=== PATIENT | male | born 1965 | race Caucasian/White ===

== ENCOUNTER 2021-12-21 10:54 | Day surgery (SDC) | payer OTHER ==
[2021-12-16 12:24] VITALS: BMI 31.1
[2021-12-21 14:44] VITALS: PULSE 52; TEMP 98.6
[2021-12-21 14:47] VITALS: BP 125/67
== END 2021-12-21 13:20 | disposition home or self-care (01) ==
LOC: FASU-ENDO 10:54
PROVIDERS: ATTEND Internal Medicine Gastroenterology
PROC: 0DJD8ZZ Inspection of Lower Intestinal Tract, Via Natural or Artificial Opening Endoscopic (ICD-10-PCS; principal; 2021-12-21 12:13)
DX: Z12.11 Encounter for screening for malignant neoplasm of colon (principal); K64.1 Second degree hemorrhoids; K64.8 Other hemorrhoids; Z86.010 Personal history of colon polyps